=== PATIENT | female | born 1965 ===

== ENCOUNTER 2017-04-09 11:53 | Emergency (ER) | payer OTHER ==
[2017-04-09 12:01] VITALS: BMI 30.5
--- NOTE | 2017-04-09 12:50 | C.PDOC ---
History Of Present Illness 51 year old female presents to the ED for evaluation of left shoulder pain associated with difficulty with range of motion which began 2 days ago. 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 Patient reports taking Naproxen at home with minimal relief. Patient denies fever, chills, chest pain, shortness of breath, extremity numbness/weakness, or direct trauma/injury to the affected area. Time Seen by Provider: 04/09/17 12:09 Chief Complaint (Nursing): Lower Extremity Problem/Injury History Per: Patient History/Exam Limitations: no limitations Current Symptoms Are (Timing): Still Present Past Medical History Reviewed: Historical Data, Nursing Documentation, Vital Signs Vital Signs: Last Vital Signs Temp 97.7 F 04/09/17 13:42 Pulse 58 L 04/09/17 13:42 Resp 18 04/09/17 13:42 BP 142/89 04/09/17 13:42 Pulse Ox 98 04/09/17 13:42 - Medical History PMH: No Chronic Diseases Surgical History: No Surg Hx Family History: States: Unknown Family Hx - Social History Hx Alcohol Use: No Hx Substance Use: No - Immunization History Hx Tetanus Toxoid Vaccination: No Hx Influenza Vaccination: No Hx Pneumococcal Vaccination: No Review Of Systems Cardiovascular: Negative for: Chest Pain Respiratory: Negative for: Shortness of Breath Musculoskeletal: Positive for: Shoulder Pain (left ) Neurological: Negative for: Weakness, Numbness Physical Exam - Physical Exam Appears: Non-toxic, No Acute Distress Skin: Normal Color, Warm, Dry, No Other (erythema to left shoulder ) Extremity: No Normal ROM (limited, secondary to pain ), Tenderness (to left anterior shoulder on palpation), Capillary Refill (less than 2 seconds ), No Deformity, No Swelling, No Other (tenderness to left wrist and elbow ) Neurological/Psych: Oriented x3, Normal Speech, Normal Cognition, Normal Sensation Gait: Steady ED Course And Treatment O2 Sat by Pulse Oximetry: 100 (on RA) Pulse Ox Interpretation: Normal - Other Rad shoulder X-Ray: Read By Radiologist Interpretation: IMPRESSION: Calcific rotator cuff tendinopathy versus calcific bursitis. No fracture or dislocation. Medical Decision Making Medical Decision Making: Progress: Left shoulder XR ordered and reviewed Toradol IM administered. discussed with patient need for cold packs q 2 hrs, pt, f/u med clinic and ortho. pt to use sling for few days then start moving shoulder to avoid frozen shoulder. Disposition Counseled Patient/Family Regarding: Studies Performed, Diagnosis, Need For Followup - Disposition Referrals: [facility] at [facility] [Outside] Kvng Castillo III, MD [Staff Provider] - Disposition: HOME/ ROUTINE Disposition Time: 13:26 Condition: STABLE Additional Instructions: Realice un seguimiento en la clnica mdica para john evaluacin adicional de mena hombro y para derivarlo a fisioterapia. Gage un seguimiento con ortofdicos si es posible. Solo use el cabestrillo shabana 2-3 hoffmann para mayor comodidad, luego debe comenzar a obstetrics gyn el hombro con suavidad, incluso si duele para evitar que se congele el hombro. [place] 2 en el mostrador naproxeno por la boca con comida cada 12 horas. Follow up in medical clinic for further evaluation of your shoulder, and for referral to physical therapy. Follow up with orthopedics if possible. Only wae sling for 2-3 days for comfort, then you need to start moving your shoulder gently even if it hurts to avoid frozen shoulder. Take 2 over the counter naproxen by nouth with food every 12 hours. Instructions: Calcific Tendinitis (ED) Forms: Gen Discharge Inst Slovak, [employer] (Slovak), Work Excuse Print Language: FRISIAN - Clinical Impression Clinical Impression: Calcific shoulder tendinitis - PA / CONSTRUCTION ADMINISTRATIVE ASSISTANT / Resident Statement MD/DO has reviewed & agrees with the documentation as recorded. - Scribe Statement The provider has reviewed the documentation as recorded by the Scribe (Ashlee Wilder) All medical record entries made by the Scribe were at my direction and personally dictated by me. I have reviewed the chart and agree that the record accurately reflects my personal performance of the history, physical exam, medical decision making, and the department course for this patient. I have also personally directed, reviewed, and agree with the discharge instructions and disposition.
--- NOTE | 2017-04-09 13:02 | RAD ---
PROCEDURE: Radiographs of the Left Shoulder HISTORY: ant shoulder pain COMPARISON: No prior. FINDINGS: BONES: No fracture or lytic lesion. A 2 mm calcification and/or ossification projects posterior to the humeral head on the transscapular Y-view. JOINTS: . Glenohumeral (minimal) and acromioclavicular (mild to moderate) osteoarthritis. SOFT TISSUES: Normal. OTHER FINDINGS: None. IMPRESSION: Calcific rotator cuff tendinopathy versus calcific bursitis. No fracture or dislocation. Glenohumeral and acromioclavicular arthrosis
[2017-04-09 13:43] VITALS: BP 142/89; PULSE 58; RESP 18; TEMP 97.7
[2017-04-09 19:16] VITALS: O2SAT 100
== END 2017-04-09 13:46 | disposition home or self-care (01) ==
LOC: C.ER 11:53
DX: M75.32 Calcific tendinitis of left shoulder (principal)
CPT/HCPCS: 73030; 96372; 99285; J1885